=== PATIENT | male | born 1975 | race African-American/Black ===

== ENCOUNTER 2017-11-11 15:19 | Emergency (ER) | payer OTHER ==
[~2017-11-11] VITALS: Ht 175.3 cm; Wt 74.9 kg
[~2017-11-11 15:19] MED LIST: HYDROCODON-ACE1 EAC7 PO; NAPROXEN500 MG PO
[2017-11-11 16:14] LABS: HEMATOCRIT 42.2 % (38.0-50.0); HEMOGLOBIN 13.9 G/DL (12.5-16.6); MCH 25.7 PG (29.0-34.0); MCHC 32.9 G/DL (30.0-36.0); MCV 78.1 FL (86-99); PLATELET COUNT 101 K/uL (156-360); RBC DIS.WIDTH-CV 15.4 % (11.8-14.6); RBC DIS.WIDTH-SD 43.2 % (39-53); WHITE BLOOD COUNT 8.8 K/uL (4.1-10.2)
[2017-11-11 16:22] LABS: CHLORIDE 106 mEq/L (99-109); POTASSIUM 4.3 mEq/L (3.7-5.4); SODIUM 140 mEq/L (136-147)
[2017-11-11 16:24] LABS: GLUCOSE 104 mg/dL (70-99)
[2017-11-11 16:28] LABS: CREATININE 1.1 mg/dL (0.6-1.3); GFR ESTIMATE (CALCULATED) > 59 mL/min/ (58.99-99999)
[2017-11-11 16:29] LABS: UREA NITROGEN (BUN) 16 mg/dL (9-23)
[2017-11-11 16:36] LABS: TROP-I INTERPRETATION NEGATIVE; TROPONIN-I < 0.01 ng/mL (0.0-0.30)
[2017-11-11 17:40] LABS: D-DIMER ELISA < 150.00 ng/mLDDU (<230)
[2017-11-11 19:25] LABS: TROP-I INTERPRETATION NEGATIVE; TROPONIN-I < 0.01 ng/mL (0.0-0.30)
[2017-11-11] MEDS ORDERED: HYDROCHLOROTHIA25 MG PO (19:55)
[2017-11-11] MEDS ORDERED: AMLODIPINE BESYL5 MG PO (19:55)
[2017-11-11 20:05] VITALS: BP 142/94
== END 2017-11-11 20:20 | disposition home or self-care (01) ==
LOC: EME 15:19
PROVIDERS: Emergency Medicine
DX: R00.2 Palpitations (principal); R07.9 Chest pain, unspecified; I10 Essential (primary) hypertension; I49.3 Ventricular premature depolarization; F17.200 Nicotine dependence, unspecified, uncomplicated; Z91.14 Patient's other noncompliance with medication regimen
CPT/HCPCS: 71046; 80048; 84484; 85027; 85379; 93005; 99281; 99285